=== PATIENT | male | born 1955 | race Caucasian/White ===

== ENCOUNTER 2018-02-26 06:09 | Observation (INO) | payer OTHER ==
[2018-02-25 13:24] LABS: BASOPHILS % 0.8 % (0.0-1.0); EOSINOPHILS # (AUTO) 0.4 (0.0-0.4); EOSINOPHILS % 7.3 % (0.0-6.0); HEMATOCRIT 38.5 % (38.2-49.6); HEMOGLOBIN 13.8 g/dL (14.0-18.0); LYMPHOCYTES # (AUTO) 0.6 (1.0-3.2); LYMPHOCYTES % 10.8 % (18.0-39.1); MEAN CORPUSCULAR HEMOGLOBIN 34.3 pg (28-32); MEAN CORPUSCULAR HGB CONC 35.8 g/dL (31-35); MEAN CORPUSCULAR VOLUME 95.8 fL (81-99); MONOCYTES # (AUTO) 0.5 (0.2-0.8); MONOCYTES % 10.4 % (4.4-11.3); NEUTROPHILS # (AUTO) 3.6 (2.1-6.9); NEUTROPHILS % 70.3 % (38.7-80.0); PLATELET COUNT 165 x10e3/uL (140-360); RED BLOOD COUNT 4.02 x10e6/uL (4.3-5.7); RED CELL DISTRIBUTION WIDTH 12.4 % (11.7-14.4)
--- NOTE | 2018-02-25 13:47 | Diagnostic Imaging Report ---
PROCEDURE: Frontal and lateral views of the chest. COMPARISON: Chest radiograph 02/06/10. INDICATIONS: PRE ADMIT, L5-SI DISC HERNIATION FINDINGS: Lines/tubes: None. Lungs: The lungs are well inflated and clear. There is no evidence of pneumonia or pulmonary edema. Pleura: There is no pleural effusion or pneumothorax. Heart and mediastinum: The cardiomediastinal silhouette is unremarkable. Bones: No acute bony abnormality. Partially seen cervical spine fixation hardware. Old fracture deformity of a right lower lateral rib with associated pleural thickening. IMPRESSION: No acute cardiopulmonary disease. Dictated by: NERIS ROWE M.D. on 02/25/2018 at 13:53 Electronically approved by: NERIS ROWE M.D. on 02/25/2018 at 13:53
[2018-02-25 14:02] LABS: INR 1.03; PROTHROMBIN TIME 12.7 seconds (11.9-14.5)
[2018-02-25 14:03] LABS: PARTIAL THROMBOPLASTIN TIME 35.4 seconds (23.8-35.5)
[2018-02-25 14:09] LABS: BLOOD UREA NITROGEN 10 mg/dL (7-26); BUN/CREATININE RATIO 11 (6-25); CALCIUM 9.6 mg/dL (8.4-10.2); CARBON DIOXIDE 25 mmol/L (22-29); CHLORIDE 104 mmol/L (98-107); CREATININE, SERUM 0.92 mg/dL (0.72-1.25); EST GLOMERULAR FILTRATION RATE > 60 ML/MIN (60-); GLUCOSE 85 mg/dL (74-118); SODIUM 139 mmol/L (136-145)
[2018-02-26] VITALS (9 sets, daily range): BP systolic 117–187; BP diastolic 58–90
[~2018-02-26] VITALS: Ht 177.8 cm; Wt 89.9 kg
[~2018-02-26 06:09] MED LIST: ALLOPURINOL300 MG PO; AMLODIPINE BESYL5 MG PO; ATENOLOL50 MG PO; BUPROPION XL150 MG PO; CLONAZEPAM0.5 MG PO; SERTRALINE HCL100 MG PO
[2018-02-26] MEDS ORDERED: THROMBIN FOR SOLN 5,000 UNIT VIAL ONE (06:47)
[2018-02-26] MEDS ORDERED: BUPIVACAINE 0.5%/EPI 30 ML SDV INJ ONE (06:47)
[2018-02-26] MEDS ORDERED: GELATIN SPONGE SZ 100 ONE (06:47)
[2018-02-26] MEDS ORDERED: BACITRACIN 50,000 UNIT VIAL ONE (06:47)
[2018-02-26] MEDS ORDERED: ACETAMINOPHEN 1000 MG/100 ML 100 ML IV ONE (07:03)
[2018-02-26] MEDS ORDERED: LIDOCAINE HCL (LTA) 4 ML SOLN ONE (07:03)
[2018-02-26] MEDS ORDERED: CEFAZOLIN SOD 1 GM VIAL ONE (07:03)
[2018-02-26] MEDS: LACTATED RINGER'S 1,000 ML IV SCH ×2 (09:49→18:09)
[2018-02-26] MEDS ORDERED: FENTANYL CITRATE/PF 100MCG/2 ML INJ ONE ×2 (09:52→14:23)
[2018-02-26] MEDS ORDERED: ONDANSETRON HCL INJ 2 MG/ML VIAL IV PRN (10:00)
[2018-02-26] MEDS ORDERED: MAGNESIUM/ALUMINUM/SIMETHICONE 30 ML UDC PO PRN (10:00)
[2018-02-26] MEDS ORDERED: MORPHINE SULFATE 5 MG/ML VIAL IM PRN (10:00)
[2018-02-26] MEDS ORDERED: OXYCODONE/ACETAMINOPHEN 5-325 1 EACH TABLET PO PRN (10:00)
[2018-02-26] MEDS ORDERED: MORPHINE SULFATE 2 MG/ML SYR ONE ×2 (10:23→10:37)
--- NOTE | 2018-02-26 10:24 | Operative Report ---
DATE OF PROCEDURE: February 26, 2018 PREOPERATIVE DIAGNOSES: Left L5-S1 disk herniation and lateral recess stenosis with radiculopathy, M51.17. POSTOPERATIVE DIAGNOSES: Left L5-S1 disk herniation and lateral recess stenosis with radiculopathy, M51.17. PROCEDURE: Left L5-S1 laminotomy, medial facetectomy, and microsurgical diskectomy, [id number]. ANESTHESIA: General. INDICATIONS: Patient is a 62-year-old man who presents with left L5-S1 disk herniation, lateral recess stenosis with left S1 radiculopathy refractory to conservative treatment. He was taken to the operating room for microsurgical decompression of the S1 nerve root. DESCRIPTION OF PROCEDURE: After induction of general anesthesia, the patient was placed on the operating table in prone position over a Terrence frame. The lumbar region was prepped and draped in sterile fashion. A preoperative x-ray was obtained. A small midline incision was created. The lumbar fascia was opened to the left of midline, and subperiosteal dissection was carried out to expose the left-sided L5 and S1 laminae and the medial aspect of the hypertrophic facet joint. A second x-ray confirmed correct localization. The operating microscope was brought in. A high-speed drill equipped with iona bur was used to drill the inferior aspect of lamina of L5 and superior rim of lamina of S1, and the medial rim of the L5-S1 hypertrophic facet joint. The hypertrophic ligamentum flavum was resected, and the S1 nerve root was exposed. The nerve root was then retracted medially and the epidural veins were bipolar coagulated to expose the L5-S1 disk. The subligamentous disk herniation could be palpated. The posterior annulus of the disk and posterior longitudinal ligament were then incised with #11 blade. The subligamentous disk herniation was retrieved with a micro ball probe and removed with a micropituitary rongeur. The loose contents of the L5-S1 disk were then evacuated with curettes and pituitary rongeurs. Meticulous hemostasis was secured. Retractor was removed. The lumbar fascia was closed with #0 Vicryl sutures. Subcutaneous layer was closed with 2-0 Vicryl sutures. The skin was closed with 3-0 Monocryl sutures in subcuticular fashion. Steri-Strips and a dressing were applied. The patient was awakened, extubated, and taken to the postanesthesia care unit in stable condition. No intraoperative complications were encountered. The estimated blood loss was 10 mL. Job#: [id number]
[2018-02-26] MEDS: CARISOPRODOL 350 MG TAB PO PRN ×2 (12:38→17:35)
[2018-02-26] MEDS: ACETAMINOPHEN 325 MG TAB PO PRN ×2 (12:38→17:36)
[2018-02-26] MEDS ORDERED: LIDOCAINE HCL 2% JELLY 5 ML TUBE ONE (13:32)
[2018-02-26] MEDS ORDERED: ROCURONIUM BROMIDE 10 MG/ML 5ML VIAL ONE (13:32)
[2018-02-26] MEDS ORDERED: ONDANSETRON HCL INJ 2 MG/ML VIAL ONE (13:32)
[2018-02-26] MEDS ORDERED: DEXAMETHASONE SOD PHOS INJ 4 MG/ML VIAL ONE (13:32)
[2018-02-26] MEDS ORDERED: SEVOFLURANE INHAL SOLN 250 ML PEN BTL ONE (13:32)
[2018-02-26] MEDS ORDERED: PROPOFOL IV EMULSION 10 MG/ML 20 ML VIAL ONE (13:32)
[2018-02-26] MEDS ORDERED: NEOSTIGMINE 5 MG/5ML SYR ONE (13:32)
[2018-02-26] MEDS ORDERED: GLYCOPYRROLATE INJ 1MG/ 5 ML SYR ONE (13:32)
[2018-02-26] MEDS ORDERED: LIDOCAINE HCL 2% LOCAL INJ 5 ML SDV VIAL INJ ONE (13:32)
[2018-02-26] MEDS ORDERED: CEFAZOLIN SOD 1 GM/D5W 50ML 50 ML IV SCH (14:00)
[2018-02-26] MEDS ORDERED: MIDAZOLAM HCL 2 MG/2 ML VIAL ONE (14:23)
[2018-02-26] MEDS: CEFAZOLIN SOD 1 GM VIAL IV SCH (15:46)
[2018-02-26] MEDS: HYDROMORPHONE 2MG/ML 2 MG/ML ML IV PRN (20:14)
[2018-02-26] MEDS ORDERED: CLONAZEPAM 0.5 MG TAB PO SCH (21:00)
[2018-02-26] MEDS ORDERED: ZOLPIDEM TARTRATE 5 MG TAB PO PRN (21:00)
[2018-02-26] MEDS ORDERED: SERTRALINE HCL 100 MG TAB PO SCH (21:00)
[2018-02-27] MEDS: CEFAZOLIN SOD 1 GM VIAL IV SCH ×3 (00:27→08:22)
[2018-02-27] MEDS: HYDROMORPHONE 2MG/ML 2 MG/ML ML IV PRN ×2 (00:28→07:05)
[2018-02-27] MEDS: LACTATED RINGER'S 1,000 ML IV SCH (02:29)
[2018-02-27 05:00] VITALS: BP 133/86
[2018-02-27 08:00] VITALS: BP 131/79
[2018-02-27] MEDS ORDERED: ATENOLOL 50 MG TAB PO SCH (09:00)
[2018-02-27] MEDS ORDERED: ALLOPURINOL 300 MG TAB PO SCH (09:00)
[2018-02-27] MEDS ORDERED: BUPROPION HCL 150 MG TABCR PO SCH (09:00)
[2018-02-27] MEDS ORDERED: AMLODIPINE BESYLATE 5 MG TAB PO SCH (09:00)
[2018-02-27 09:23] VITALS: BP 131/79
[2018-02-27] MEDS ORDERED: ULTRAM50 MG PO (09:31)
[2018-02-27] MEDS ORDERED: SOMA350 MG PO (09:32)
== END 2018-02-27 10:20 | disposition home or self-care (01) ==
LOC: OR 06:09 → PACU V 09:50 → IMCU 11:29
PROVIDERS: ADMIT Neurological Surgery; ATTEND Neurological Surgery
DX: M51.17 Intervertebral disc disorders with radiculopathy, lumbosacral region (principal); I10 Essential (primary) hypertension; M48.07 Spinal stenosis, lumbosacral region
CPT/HCPCS: 36415; 63047; 71046; 72020; 80048; 85025; 85610; 85730; 86850; 86900; 88304; 93005; G0378 ×2; J0690 ×2; J1100; J1170 ×2; J2001 ×2; J2250; J2270; J2405; J3490; J7120

== ENCOUNTER 2018-04-06 09:19 | Outpatient (RCR) | payer OTHER ==
[~2018-04-06 09:19] MED LIST changes: +SOMA350 MG PO; +ULTRAM50 MG PO
== END 2018-04-12 ==
LOC: PT 09:19
PROVIDERS: ATTEND Neurological Surgery
DX: M51.17 Intervertebral disc disorders with radiculopathy, lumbosacral region (principal)

== ENCOUNTER 2018-04-16 10:00 | Outpatient (RCR) | payer OTHER | END 2018-05-13 | LOC: PT 10:00 | PROVIDERS: ATTEND Neurological Surgery | DX: M51.17 Intervertebral disc disorders with radiculopathy, lumbosacral region (principal); M53.87 Other specified dorsopathies, lumbosacral region; R26.2 Difficulty in walking, not elsewhere classified; M62.81 Muscle weakness (generalized) ==